=== PATIENT | male | born 1980 | race Caucasian/White ===

== ENCOUNTER 2017-10-18 02:27 | Inpatient (IN) | payer MEDICAID ==
[~2017-10-18] VITALS: Ht 175.3 cm; Wt 108.6 kg
--- NOTE | ~2017-10-18 | OP ---
PATIENT NAME: TYLER ALBRIGHT MEDICAL RECORD: [id number] :80 LOCATION:D. D.2119 ADMISSION DATE:10/18/17 SURGEON: JAY ACHARYA MD DATE OF OPERATION: 10/20/2017 SURGEON: Jay Acharya MD PREOPERATIVE DIAGNOSIS: Left axillary abscess with cellulitis. POSTOPERATIVE DIAGNOSIS: Left axillary abscess with cellulitis. PROCEDURE PERFORMED: Incision and drainage of complex multiloculated left axillary abscess, 7 cm x 3 cm x 5 cm. ANESTHESIA: General. COMPLICATIONS: None. SPECIMENS: Anaerobic and aerobic cultures. Case was grossly contaminated. ESTIMATED BLOOD LOSS: 40 cc. OPERATIVE COURSE: After consent was obtained, the patient was taken to the operating room and placed in the supine position on the operating table. Next, general anesthesia was given via endotracheal intubation. After time-out was taken to confirm correct patient and procedure, the left axilla was prepped and draped in typical sterile fashion. There were 2 raised erythematous blanching lesions in the left axilla, consistent with the 2 loculated abscesses seen on ultrasound of the left axilla. Incision and drainage was performed with a #15 blade scalpel over the apex of both areas in the left axilla. Approximately 50 cc of purulent material was expressed. Anaerobic and aerobic cultures were taken. The wound was copiously irrigated. The wound was then packed with iodoform gauze. The 2 areas communicated within the subcutaneous tissue. Loculations were broken up using blunt dissection. Total size of the abscess cavity was 7 cm x 4 cm x 5 cm. The wound was packed with iodoform gauze and covered with sterile gauze dressings. At the end of the case, all needle and instrument counts were correct. No complications occurred. The patient was extubated and transferred to the PACU in stable condition. 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
[2017-10-18 03:15] LABS: BASOPHILS 0.3 % (0-2); EOSINOPHILS 2.2 % (0-7); HEMATOCRIT 41.5 % (42.0-54.0); HEMOGLOBIN 14.1 g/dL (13.5-17.5); IMMATURE GRANULOCYTES 0.3 % (0-5); LYMPHOCYTES 25.6 % (15-50); MCH 27.3 pg (26.0-34.0); MCV 80.3 fL (80.0-100.0); MEAN PLATELET VOLUME 9.6 fL (7.4-10.4); MONOCYTES 11.1 % (2-11); NEUTROPHILS 60.5 % (40-80); PLATELET COUNT 274 10x3/uL (130-400); RBC 5.17 10x6/uL (4.20-6.10); RDW 12.7 % (11.5-14.5); WBC 14.7 10x3/uL (4.8-10.8)
[2017-10-18 03:33] LABS: ALBUMIN 3.4 g/dL (3.4-5.0); ALKALINE PHOSPHATASE 66 U/L (46-116); ALT (SGPT) 22 U/L (10-68); BILIRUBIN - TOTAL 0.96 mg/dL (0.2-1.3); CALC OSMOLALITY 272 mosm/kg (275-300); CALCIUM 8.7 mg/dL (8.5-10.1); CARBON DIOXIDE 25.9 mmol/L (21.0-32.0); CHLORIDE - SERUM 101 mmol/L (98-107); CREATININE - SERUM 1.1 mg/dL (0.6-1.3); GLUCOSE 91 mg/dL (74-106); POTASSIUM - SERUM 3.8 mmol/L (3.5-5.1); PROTEIN - SERUM 7.5 g/dL (6.4-8.2); SODIUM 136 mmol/L (136-145); UREA NITROGEN 15 mg/dL (7-18); eGFR NON AFRICAN AMERICAN 80 mL/min (90-120)
[2017-10-18] MEDS ORDERED: PROZAC20 MG PO (05:00)
[2017-10-18 05:35] VITALS: BP 146/96; BMI 33.6
[2017-10-18 08:54] VITALS: BP 141/77
[2017-10-18 12:33] VITALS: BP 147/99
[2017-10-18 16:34] VITALS: BP 148/97
[2017-10-18 20:06] VITALS: BP 139/85
[2017-10-19] VITALS (7 sets, daily range): BP systolic 118–145; BP diastolic 67–88
[2017-10-19 05:54] LABS: BASOPHILS 0.2 % (0-2); EOSINOPHILS 5.4 % (0-7); HEMATOCRIT 39.2 % (42.0-54.0); HEMOGLOBIN 13.1 g/dL (13.5-17.5); IMMATURE GRANULOCYTES 0.2 % (0-5); LYMPHOCYTES 20.8 % (15-50); MCH 26.9 pg (26.0-34.0); MCHC 33.4 g/dL (31.0-37.0); MCV 80.5 fL (80.0-100.0); MEAN PLATELET VOLUME 9.6 fL (7.4-10.4); NEUTROPHILS 62.4 % (40-80); PLATELET COUNT 256 10x3/uL (130-400); RBC 4.87 10x6/uL (4.20-6.10); RDW 12.9 % (11.5-14.5)
[2017-10-19 05:56] LABS: WBC 9.4 10x3/uL (4.8-10.8)
[2017-10-19 06:07] LABS: CALC OSMOLALITY 276 mosm/kg (275-300); CALCIUM 7.9 mg/dL (8.5-10.1); CARBON DIOXIDE 25.5 mmol/L (21.0-32.0); CHLORIDE - SERUM 105 mmol/L (98-107); GLUCOSE 100 mg/dL (74-106); POTASSIUM - SERUM 3.8 mmol/L (3.5-5.1); SODIUM 138 mmol/L (136-145); UREA NITROGEN 14 mg/dL (7-18); eGFR NON AFRICAN AMERICAN 89 mL/min (90-120)
[2017-10-20 04:00] VITALS: BP 151/104
[2017-10-20 05:10] LABS: BASOPHILS 0.2 % (0-2); HEMATOCRIT 33.7 % (42.0-54.0); HEMOGLOBIN 11.2 g/dL (13.5-17.5); IMMATURE GRANULOCYTES 0.2 % (0-5); LYMPHOCYTES 33.9 % (15-50); MCH 26.8 pg (26.0-34.0); MCHC 33.2 g/dL (31.0-37.0); MCV 80.6 fL (80.0-100.0); MEAN PLATELET VOLUME 9.1 fL (7.4-10.4); NEUTROPHILS 48.7 % (40-80); PLATELET COUNT 255 10x3/uL (130-400); RBC 4.18 10x6/uL (4.20-6.10); WBC 8.3 10x3/uL (4.8-10.8)
[2017-10-20 06:04] LABS: ALBUMIN 2.2 g/dL (3.4-5.0); ALKALINE PHOSPHATASE 57 U/L (46-116); ALT (SGPT) 21 U/L (10-68); BILIRUBIN - TOTAL 0.22 mg/dL (0.2-1.3); CARBON DIOXIDE 21.4 mmol/L (21.0-32.0); CHLORIDE - SERUM 110 mmol/L (98-107); CREATININE - SERUM 0.8 mg/dL (0.6-1.3); GLUCOSE 91 mg/dL (74-106); POTASSIUM - SERUM 3.4 mmol/L (3.5-5.1); PROTEIN - SERUM 5.5 g/dL (6.4-8.2); SODIUM 140 mmol/L (136-145); eGFR NON AFRICAN AMERICAN > 90 mL/min (90-120)
[2017-10-20 06:05] LABS: CALC OSMOLALITY 276 mosm/kg (275-300); CALCIUM 6.9 mg/dL (8.5-10.1); UREA NITROGEN 8 mg/dL (7-18)
[2017-10-20 08:48] VITALS: BP 122/79
[2017-10-20 11:13] VITALS: BP 141/90
[2017-10-20 12:39] VITALS: Ht 175.3 cm; Wt 108.6 kg
[2017-10-20 21:23] VITALS: BP 146/90
[2017-10-21] VITALS (7 sets, daily range): BP systolic 107–154; BP diastolic 78–101
[2017-10-21 05:44] LABS: BASOPHILS 0.4 % (0-2); EOSINOPHILS 8.8 % (0-7); HEMATOCRIT 38.8 % (42.0-54.0); HEMOGLOBIN 12.9 g/dL (13.5-17.5); IMMATURE GRANULOCYTES 0.3 % (0-5); LYMPHOCYTES 44.9 % (15-50); MCH 26.8 pg (26.0-34.0); MCHC 33.2 g/dL (31.0-37.0); MCV 80.7 fL (80.0-100.0); MEAN PLATELET VOLUME 9.3 fL (7.4-10.4); MONOCYTES 8.1 % (2-11); NEUTROPHILS 37.5 % (40-80); RBC 4.81 10x6/uL (4.20-6.10); RDW 12.9 % (11.5-14.5); WBC 7.6 10x3/uL (4.8-10.8)
[2017-10-21 06:03] LABS: PLATELET COUNT 313 10x3/uL (130-400)
[2017-10-21 06:07] LABS: ALBUMIN 2.6 g/dL (3.4-5.0); ALKALINE PHOSPHATASE 63 U/L (46-116); BILIRUBIN - TOTAL 0.21 mg/dL (0.2-1.3); CALC OSMOLALITY 277 mosm/kg (275-300); CALCIUM 8.2 mg/dL (8.5-10.1); CARBON DIOXIDE 22.7 mmol/L (21.0-32.0); CHLORIDE - SERUM 107 mmol/L (98-107); GLUCOSE 112 mg/dL (74-106); PROTEIN - SERUM 6.5 g/dL (6.4-8.2); SODIUM 140 mmol/L (136-145); UREA NITROGEN 7 mg/dL (7-18); eGFR NON AFRICAN AMERICAN 89 mL/min (90-120)
[2017-10-21 06:13] LABS: ALT (SGPT) 29 U/L (10-68); POTASSIUM - SERUM 4.2 mmol/L (3.5-5.1)
[2017-10-22 04:00] VITALS: BP 150/94
[2017-10-22 05:34] LABS: BASOPHILS 0.2 % (0-2); EOSINOPHILS 8.7 % (0-7); HEMATOCRIT 40.6 % (42.0-54.0); HEMOGLOBIN 13.8 g/dL (13.5-17.5); IMMATURE GRANULOCYTES 0.2 % (0-5); LYMPHOCYTES 40.8 % (15-50); MCH 27.1 pg (26.0-34.0); MCV 79.6 fL (80.0-100.0); MONOCYTES 8.1 % (2-11); PLATELET COUNT 345 10x3/uL (130-400); RDW 12.7 % (11.5-14.5)
[2017-10-22 06:52] LABS: ALBUMIN 2.8 g/dL (3.4-5.0); ALKALINE PHOSPHATASE 71 U/L (46-116); ALT (SGPT) 28 U/L (10-68); BILIRUBIN - TOTAL 0.18 mg/dL (0.2-1.3); CALCIUM 8.8 mg/dL (8.5-10.1); CARBON DIOXIDE 25.4 mmol/L (21.0-32.0); CREATININE - SERUM 0.9 mg/dL (0.6-1.3); GLUCOSE 99 mg/dL (74-106); PROTEIN - SERUM 6.9 g/dL (6.4-8.2); eGFR NON AFRICAN AMERICAN > 90 mL/min (90-120)
[2017-10-22 06:53] LABS: UREA NITROGEN 11 mg/dL (7-18)
[2017-10-22 07:35] LABS: CALC OSMOLALITY 277 mosm/kg (275-300); CHLORIDE - SERUM 106 mmol/L (98-107); POTASSIUM - SERUM 4.1 mmol/L (3.5-5.1); SODIUM 140 mmol/L (136-145)
[2017-10-22 08:00] VITALS: BP 131/72
[2017-10-22] MEDS ORDERED: CLEOCIN HCL300 MG PO (10:26)
[2017-10-22 11:39] VITALS: BP 129/68
== END 2017-10-22 11:48 | disposition left against medical advice (07) | DRG 603 ==
LOC: D.ER 02:27 → OBSVTIME 02:50 → D.M2 02:50 → OBSVTIME 04:00 → D.M2 04:00
PROVIDERS: Family Medicine; Surgery
PROC: 0X953ZZ Drainage of Left Axilla, Percutaneous Approach (ICD-10-PCS; principal; 2017-10-20 09:00)
DX: L02.412 Cutaneous abscess of left axilla (principal); F17.203 Nicotine dependence unspecified, with withdrawal; B95.62 Methicillin resistant Staphylococcus aureus infection as the cause of diseases classified elsewhere; D64.9 Anemia, unspecified; I10 Essential (primary) hypertension; E87.6 Hypokalemia